=== PATIENT | male | born 2000 | race African-American/Black ===

== ENCOUNTER 2020-12-15 23:52 | Emergency (ER) | payer OTHER ==
[~2020-12-15] VITALS: Ht 180.3 cm; Wt 72.6 kg
--- NOTE | ~2020-12-15 | EMS ---
[place] [address] EMS Patient Care Report Name: DOUG ANDERSON Room #: DEP VIDAL Solomon#: [id number] Admission: 12/15/20 Attend Phys: Discharge: 12/16/20 Date of : 00 Report #: [id number] THIS REPORT FOR: //name// Report Transmitted: 12/16/2020 08:35 EMS Care Summary [place], [place]/[facility] Incident [id number] @ 12/15/2020 23:17 Incident [address] [place], [place] [id number] Patient DOUG ANDERSON Male, 20 Years 2000 Patient Address [address] [place], [place] [id number] Patient History None Reported, Patient Allergies No known allergies, Patient Medications None Reported, Chief Complaint fever Disposition Transported No Lights/[place] Dispatch Reason Sick Person Transported To [facility] Narrative Arrived to find pt walking out of apt complex with gf. Pt stepped inside ambulance, sat on cot and was secured with cot straps. Pt placed [place] [address] EMS Patient Care Report Name: DOUG ANDERSON Room #: DEP RheaVerito#: [id number] Admission: 12/15/20 Attend Phys: Discharge: 12/16/20 Date of : 00 Report #: [id number] states he had [employer] 2 days ago and has been vomiting with loose stool ever since then. Pt states he has not had a covid vaccine and has had a temperature for the past 2 days as well, along with body aches. Pt does have a high fever and is tachycardic. Pt transported to the closest hospital without incident. Care to RN, rm 4. Initial Vitals @23:37P: 141,BP: 114/59,SpO2: 98, @23:36P: 145,CO: 7,SpO2: 99, @23:37P: 133,SpO2: 98, @23:32P: 166,R: 18,BP: 116/68,Pain: 2/10,GCS: 15,Temp: 103.2F,Glucose: 116,CO: 8,SpO2: 97,Revised Trauma: 12,VA Suspected: false Assessments @23:32MENTAL:Time Oriented,Event Oriented,Person Oriented,Place Oriented,SKIN:HEENT:Head/Face: No Abnormalities,Eyes: No Abnormalities,Neck/Airway: No Abnormalities,LUNG SOUNDS:General: Vomiting,General: Nausea,General: Diarrhea,ABDOMEN:General: Vomiting,General: Nausea,General: Diarrhea,PELVIS//GI:No Abnormalities,EXTREMITIES:Left Arm: No Abnormalities,Right Arm: No Abnormalities,Left Leg: No Abnormalities,Right Leg: No Abnormalities,PULSE:NEURO: Impression Fever Procedures @23:36Saline Lock 10cc (20 ga) Site: Antecubital-LeftResponse: UnchangedSucceeded@23:32ALS AssessmentResponse: UnchangedSucceeded@23:353-Lead ECGResponse: UnchangedSucceeded Timeline 23:15,Call Received 23:15,Dispatch Notified 23:17,Dispatched 23:19,En Route 23:28,On Scene 23:31,At Patient 23:32,ALS Assessment,Response: UnchangedSucceeded, 23:32,BP: 116/68 M,PULSE: 166,RR: 18 R,SPO2: 97 Ox,ETCO2: ,B,PAIN: 2,GCS: 15, 23:35,3-Lead ECG,Response: UnchangedSucceeded, 23:36,BP: / M,PULSE: 145,RR: R,SPO2: 99 Ox,ETCO2: ,BG: ,PAIN: ,GCS: , 23:36,Saline Lock 10cc 20 ga Site: Antecubital-Left,Response: UnchangedSucceeded, 23:37,BP: / M,PULSE: 133,RR: R,SPO2: 98 Ox,ETCO2: ,BG: ,PAIN: ,GCS: , 23:37,BP: 114/59 M,PULSE: 141,RR: R,SPO2: 98 Ox,ETCO2: ,BG: ,PAIN: ,GCS: , [facility] [address] [place] [address] EMS Patient Care Report Name: BEAU ANDERSONRIEL Room #: DEP Neha#: [id number] Admission: 12/15/20 Attend Phys: Discharge: 12/16/20 Date of : 00 Report #: [id number] 23:40,Depart Scene 23:50,At Destination 23:57,Call Closed Disclaimer v1.1 Copyright 2020 [employer] This EMS Care Summary contains data elements from the applicable legal record (which may be displayed differently). It is designed to provide pertinent information for the following purposes: continuity of care, clinical quality, and state data reporting. The complete legal record is available to ED staff and administrators of the receiving hospital in [employer] Patient Tracker. All data is provided "as is."
[2020-12-16 00:30] LABS: CALCIUM 8.7 mg/dL (8.5-10.1); CREATININE 1.1 mg/dL (0.7-1.3); POTASSIUM 3.4 mmol/L (3.5-5.1)
[2020-12-16 00:31] LABS: ABSOLUTE NEUTROPHILS 9.2 thou/uL (1.4-8.2); BASOPHILS 0.2 % (0.0-2.0); HEMATOCRIT 44.1 % (42.0-52.0); LYMPHOCYTES 5.6 % (24.0-44.0); MCH 31.5 pg (26.0-34.0); MCV 92.6 fL (80.0-100.0); PLATELET COUNT 146 thou/uL (150-400); POLYS 88.2 % (36.0-66.0); RBC 4.76 mil/uL (4.50-6.00); RDW 12.8 % (10.5-14.5); WBC 10.4 thou/uL (4.0-11.0)
[2020-12-16 00:43] LABS: ALBUMIN 3.9 g/dL (3.4-5.0); TOTAL BILIRUBIN 0.6 mg/dL (0.2-1.0); TOTAL PROTEIN 7.3 g/dL (6.4-8.2)
[2020-12-16] MEDS ORDERED: FLAGYL500 M1 PO (02:55)
[2020-12-16] MEDS ORDERED: LEVOFLOXACIN750 MG PO (02:55)
[2020-12-16] MEDS ORDERED: ZOFRAN ODT4 MG PO (02:55)
[2020-12-16 03:45] VITALS: BP 137/68
--- NOTE | 2020-12-16 06:57 | EKG ---
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
== END 2020-12-16 03:46 | disposition home or self-care (01) ==
LOC: ER 23:52
PROVIDERS: Emergency Medicine
DX: K52.9 Noninfective gastroenteritis and colitis, unspecified (principal); Z20.822 Contact with and (suspected) exposure to COVID-19; R50.9 Fever, unspecified; F17.210 Nicotine dependence, cigarettes, uncomplicated